=== PATIENT | female | born 1935 | race Caucasian/White ===

== ENCOUNTER → 2023-11-08 | Outpatient (CLI) | payer MEDICARE, BC ==
[~2023-11-08] VITALS: Ht 170.2 cm; Wt 60.5 kg
[~2023-11-08] MED LIST: CLARITIN 1010 MG/TAB PO; LAMICTAL 25MG T25 MG PO; LYRICA 25MG CAP25 MG PO; SEPTRA DS 8001 TAB PO; Triamcinolone 40 MG/ML 1 ML VIAL IJ SCH; VASOTEC20 MG PO; ZOVIRAX400 MG PO
[2023-11-08 08:22] VITALS: BP 183/93; PULSE 72; TEMP 97.8
[2023-11-08 09:09] VITALS: BP 193/85; PULSE 74
== END ==
LOC: COL.CAR 06:41
DX: M54.10 Radiculopathy, site unspecified (principal); M48.56XA Collapsed vertebra, not elsewhere classified, lumbar region, initial encounter for fracture
CPT/HCPCS: J0665; J3301

== ENCOUNTER → 2024-01-10 | Outpatient (CLI) | payer MEDICARE, BC ==
[~2024-01-10] MED LIST changes: +Iohexol 300 - 100 ML VIAL IV ONE; +NS 100 ML IV SCH; -Triamcinolone 40 MG/ML 1 ML VIAL IJ SCH
== END ==
LOC: COL.RAD 08:23
DX: C82.13 Follicular lymphoma grade II, intra-abdominal lymph nodes (principal); C82.23 Follicular lymphoma grade III, unspecified, intra-abdominal lymph nodes; R91.8 Other nonspecific abnormal finding of lung field; S32.010A Wedge compression fracture of first lumbar vertebra, initial encounter for closed fracture
CPT/HCPCS: Q9967